=== PATIENT | male | born 1950 | race Caucasian/White ===

== ENCOUNTER → 2018-09-26 | Outpatient (CLI) | payer BC, MEDICARE ==
[~2018-09-26] MED LIST: IOHEXOL 240 MG/ML 50ML VIAL. ONE
[2018-09-26] MEDS: IOHEXOL 300 MG/ML 75 ML VIAL. IV ONE (13:12)
--- NOTE | 2018-09-26 13:47 | RAD ---
Examination: CT of the abdomen pelvis with IV contrast HISTORY: History of right lower quadrant pain, rectal bleeding, history of Crohn's disease. COMPARISON: None available TECHNIQUE: Axial CT images of the abdomen pelvis were performed with oral and IV contrast. Coronal and sagittal reformats are performed Exposure: One or more of the following individualized dose reduction techniques were utilized for this examination: 1. Automated exposure control 2. Adjustment of the mA and/or kV according to patient size 3. Use of iterative reconstruction technique FINDINGS: Mild bibasilar lung atelectasis. No evidence of free air identified in the abdomen. Mild decreased attenuation noted in the liver. The visualized adrenals grossly appears unremarkable: Cystectomy clips identified. The stomach is mildly distended. Small cyst identified in the spleen measuring 1 cm. The visualized pancreas grossly appears unremarkable. The small bowel is nondilated. Mild thickened appearance of the small bowel in the distal small bowel region of the site of anastomosis probably due to nondistention. Moderate amount of feces and gas noted in the colon. The appendix is normal. In the bilateral kidneys enhance symmetrically. The caliber of the aorta grossly appears unremarkable. Urinary bladder is mildly distended. Mildly enlarged prostate gland. Moderate degenerative changes lumbar spine. IMPRESSION: 1. Mild thickened appearance of the small bowel in the distal small bowel region of the site of anastomosis probably due to nondistention. 2. Hepatic steatosis. 3. Cholecystectomy changes. Postsurgical changes distal small bowel and sigmoid colon. Electronically signed by: Manoj Graff MD (09/26/2018 1:43 PM) [id number]
== END | disposition home or self-care (01) ==
LOC: CT 11:20
PROVIDERS: ATTEND Internal Medicine Gastroenterology
DX: K50.90 Crohn's disease, unspecified, without complications (principal); K62.5 Hemorrhage of anus and rectum; N40.0 Benign prostatic hyperplasia without lower urinary tract symptoms; K76.0 Fatty (change of) liver, not elsewhere classified; J98.11 Atelectasis; D73.4 Cyst of spleen; K31.89 Other diseases of stomach and duodenum; Z90.49 Acquired absence of other specified parts of digestive tract
CPT/HCPCS: 74177; Q9966; Q9967